=== PATIENT | male | born 1985 | race African-American/Black ===

== ENCOUNTER 2023-09-10 13:29 | Emergency (ER) | payer MEDICAID ==
[~2023-09-10] VITALS: Ht 180.3 cm; Wt 84.1 kg
[2023-09-10 13:31] VITALS: TEMP 98
[2023-09-10] MEDS: KETOROLAC TROMETHAMINE 30 MG/ML VIAL IM ONE (14:45)
[2023-09-10] MEDS: LIDOCAINE 5% TRANSDERMAL PATCH TD ONE (14:46)
[2023-09-10] MEDS ORDERED: IBUP-1506 PO (15:40)
[2023-09-10 15:50] VITALS: BP 132/79; PULSE 67; RESP 18
== END 2023-09-10 15:52 | disposition home or self-care (01) ==
LOC: EMS 13:30
DX: S39.012A Strain of muscle, fascia and tendon of lower back, initial encounter (principal); X58.XXXA Exposure to other specified factors, initial encounter; Y93.89 Activity, other specified; Y92.89 Other specified places as the place of occurrence of the external cause; Y99.8 Other external cause status
CPT/HCPCS: 99283; 96372; J1885